=== PATIENT | male | born 1995 | race Asian ===

== ENCOUNTER 2019-01-02 09:55 | Emergency (ER) | payer OTHER ==
[~2019-01-02] VITALS: Ht 175 cm; Wt 75.5 kg
[2019-01-02 10:12] VITALS: BP 150/91
[2019-01-02] MEDS ORDERED: CORTIZONE-10 MAXIM11 TOP (10:29)
[2019-01-02 10:43] VITALS: PULSE 81; TEMP 98.5
== END 2019-01-02 10:40 | disposition home or self-care (01) ==
LOC: COL.ER 09:55
DX: B08.1 Molluscum contagiosum (principal); L81.9 Disorder of pigmentation, unspecified